=== PATIENT | male | born 1950 | race American Indian/Alaskan Native ===

== ENCOUNTER 2017-01-21 10:57 | Emergency (ER) | payer MEDICARE ==
--- NOTE | 2017-01-21 12:22 | Cat Scan Report ---
CT scan of head without IV contrast: History: Headache. Findings: Ventricles are normal in size and midline in location. No evidence of acute ischemia, hemorrhage or mass. No extra-axial fluid collection. Normal brainstem and cerebellum. Normal sinuses and mastoid air cells. Impression: No acute intracranial abnormality.
[2017-01-21] MEDS ORDERED: TORADOL IM ONE (18:32)
--- NOTE | 2017-01-21 18:37 | Emergency Department Report ---
ED Headache HPI - General Chief Complaint: Headache Stated Complaint: RIGHT EAR BLEEDIN, HEADACHE Time Seen by Provider: 01/21/17 18:27 Source: patient Exam Limitations: no limitations - History of Present Illness Initial Comments: Patient is 66 years old male with history of high blood pressure came today with headache started this morning throbbing in nature and comes and goes. Patient denied any fever neck pain or stiffness no shortness of breaths or chest pain. Patient also denied any weakness numbness or tingling sensation no bowel or bladder incontinence. Timing/Duration: constant Quality: moderate, throbbing Recent Head Trauma: no recent headache/trauma, occasional headaches Associated Symptoms: denies symptoms, nasal congestion. denies: confusion, fatigue, facial pain, fever/chills, loss of consciousness, nausea/vomiting, nasal drainage, numbness in legs/feet, rash, seizures, sinus infection, stiff neck, vision changes, weakness Allergies/Adverse Reactions: Allergies No Known Allergies Allergy (Verified 09/19/14 15:35) Home Medications: Ambulatory Orders Aspirin [Aspirin BABY CHEW TAB] 81 mg PO QDAY 03/13/13 Atorvastatin [Lipitor] 40 mg PO QHS 09/19/14 Diclofenac Sodium [Diclofenac Sodium ER] 100 mg PO DAILY 09/19/14 Hydrochlorothiazide [HCTZ] 25 mg PO QDAY 09/19/14 Metoprolol [Lopressor TAB] 50 mg PO DAILY 09/19/14 Tamsulosin [Flomax] 0.4 mg PO QDAY 09/19/14 amLODIPine [Norvasc] 5 mg PO DAILY #30 tab 09/20/14 hydrALAZINE [Apresoline TAB] 10 mg PO Q8H #30 tablet 01/21/17 ED Review of Systems ROS: Stated complaint: RIGHT EAR BLEEDIN, HEADACHE Other details as noted in HPI Comment: All other systems reviewed and negative Constitutional: denies: chills, fever Eyes: denies: eye discharge ENT: ear pain, congestion. denies: dental pain Respiratory: denies: cough, orthopnea, shortness of breath, SOB with exertion Cardiovascular: denies: chest pain, palpitations Gastrointestinal: denies: abdominal pain, nausea Genitourinary: denies: urgency, dysuria, frequency, hematuria Musculoskeletal: denies: back pain Skin: denies: rash Neurological: headache. denies: weakness, numbness, paresthesias, confusion, abnormal gait, vertigo ED Past Medical Hx - Past Medical History Previous Medical History?: Yes Hx Hypertension: Yes Hx CVA: Yes Hx Diabetes: Yes Hx Arthritis: Yes (Right knee) Additional medical history: CVA 2009,2014 - Surgical History Past Surgical History?: Yes Additional Surgical History: left testicular surgery - Social History Smoking Status: Current Every Day Smoker Substance Use Type: None - Medications Home Medications: Home Medications Medication Instructions Recorded Confirmed Last Taken Type Aspirin [Aspirin BABY CHEW TAB] 81 mg PO QDAY 03/13/13 09/19/14 03/13/13 08:00 History Atorvastatin [Lipitor] 40 mg PO QHS 09/19/14 09/19/14 Unknown History Diclofenac Sodium [Diclofenac 100 mg PO DAILY 09/19/14 09/19/14 Unknown History Sodium ER] Hydrochlorothiazide [HCTZ] 25 mg PO QDAY 09/19/14 09/19/14 Unknown History Metoprolol [Lopressor TAB] 50 mg PO DAILY 09/19/14 09/19/14 Unknown History Tamsulosin [Flomax] 0.4 mg PO QDAY 09/19/14 09/19/14 Unknown History amLODIPine [Norvasc] 5 mg PO DAILY #30 tab 09/20/14 Unknown Rx hydrALAZINE [Apresoline TAB] 10 mg PO Q8H #30 tablet 01/21/17 Unknown Rx ED Physical Exam - General Limitations: No Limitations General appearance: alert, in no apparent distress - Head Head exam: Present: atraumatic, normal inspection - Eye Eye exam: Present: normal appearance - ENT ENT exam: Present: normal exam - Neck Neck exam: Present: normal inspection, full ROM. Absent: tenderness, meningismus, lymphadenopathy, thyromegaly - Respiratory Respiratory exam: Present: normal lung sounds bilaterally. Absent: respiratory distress, wheezes, rales, rhonchi, chest wall tenderness, accessory muscle use, decreased breath sounds - Cardiovascular Cardiovascular Exam: Present: regular rate, normal rhythm, normal heart sounds - GI/Abdominal GI/Abdominal exam: Present: soft. Absent: distended, tenderness, guarding, rebound - Extremities Exam Extremities exam: Present: normal inspection - Back Exam Back exam: Present: normal inspection - Neurological Exam Neurological exam: Present: alert, oriented X3, CN II-XII intact, normal gait, reflexes normal. Absent: motor sensory deficit - Skin Skin exam: Present: warm, normal color ED Course Vital Signs 01/21/17 01/21/17 11:43 18:35 Temperature 98.1 F 98.1 F Pulse Rate 63 62 Respiratory 16 20 Rate Blood Pressure 196/98 Blood Pressure 180/90 [Left] O2 Sat by Pulse 98 94 Oximetry ED Medical Decision Making - Radiology Data Radiology results: report reviewed CT brain unremarkable for acute changes - Medical Decision Making Patient improved after Toradol injection and blood pressure medicine. I believe his headache is due to increased blood pressure. I will give him a prescription for hydralazine and I advised him to follow up with his primary care physician for further management. Advised patient to come to the ER if symptoms not improving. Critical care attestation.: If time is entered above; I have spent that time in minutes in the direct care of this critically ill patient, excluding procedure time. ED Disposition Clinical Impression: Headache, Hypertensive urgency Disposition: DC-01 TO HOME OR SELFCARE Is pt being admited?: No Condition: Stable Instructions: Chronic Hypertension (ED), Acute Headache (ED) Referrals: PRIMARY CARE, [Primary Care Provider] - 3-5 Days
[2017-01-21 18:39] VITALS: BP 196/98
[2017-01-21] MEDS ORDERED: CATAPRES PO ONE (18:39)
== END 2017-01-21 19:11 | disposition home or self-care (01) ==
LOC: ED 10:57
DX: I16.0 Hypertensive urgency (principal); R51 Headache; Z86.73 Personal history of transient ischemic attack (TIA), and cerebral infarction without residual deficits; E11.9 Type 2 diabetes mellitus without complications; M19.90 Unspecified osteoarthritis, unspecified site; F17.200 Nicotine dependence, unspecified, uncomplicated; Z79.82 Long term (current) use of aspirin
CPT/HCPCS: 70450; 96372; 99283; J1885